=== PATIENT | female | born 1940 | race Caucasian/White ===

== ENCOUNTER → 2016-11-09 | Outpatient (CLI) | payer OTHER ==
[2016-11-09 16:00] LABS: BASOPHILS # (AUTO) 0.04 10*3/UL; BASOPHILS % (AUTO) 0.5 % (0-1); EOSINOPHILS % (AUTO) 2.6 % (0-8); HEMATOCRIT 40.3 % (37.0-47.0); HEMOGLOBIN 12.9 g/dL (12.0-16.0); LYMPHOCYTES # (AUTO) 1.83 10*3/uL; MEAN CORPUSCULAR HEMOGLOBIN 29.4 PG (27-31); MEAN CORPUSCULAR VOLUME 91.8 FL (81-99); MEAN PLATELET VOLUME 9.4 FL (7.4-12.2); MONOCYTES # (AUTO) 0.86 10*3/UL (0.3-0.8); NEUTROPHILS # (AUTO) 4.88 10*3/UL; NEUTROPHILS % (AUTO) 62.2 % (50-80); RED BLOOD COUNT 4.39 10^6/uL (4.20-5.40)
[2016-11-09 16:05] LABS: PLATELET MORPHOLOGY COMMENT NORMAL MORPHOLOGY (NORM); RBC MORPHOLOGY COMMENT NORMAL MORPHOLOGY (NORM); WBC MORPHOLOGY COMMENT NORMAL MORPHOLOGY (NORM)
[2016-11-09 16:19] LABS: CLARITY,URINE CLEAR (CLEAR); COLOR,URINE YELLOW; URINE SAMPLE TYPE VOIDED SPECIMEN
[2016-11-09 16:20] LABS: BACTERIA,URINE RARE; BILIRUBIN,URINE NEGATIVE (NEG); GLUCOSE, URINE (UA) NEGATIVE (NEG); NITRATE,URINE NEGATIVE (NEG); OCCULT BLOOD,URINE NEGATIVE (NEG); PH,URINE 7.5 (5.0-8.5); PROTEIN,URINE NEGATIVE (NEG); SQUAMOUS EPITHELIAL CELL,UR MODERATE; UROBILINOGEN,URINE 0.2 mg/dL (0.2); WBC,URINE 0-2
[2016-11-09 16:21] LABS: BUN/CREATININE RATIO 21.11 (6-20); CALCIUM 9.4 mg/dL (8.7-10.7); CHOL/HDL RATIO 3.98 RATIO (0-4.0); LDL CHOLESTEROL,CALCULATED 142.8 mg/dL
== END ==
LOC: MOB LAB 15:17
DX: I10 Essential (primary) hypertension (principal); E78.5 Hyperlipidemia, unspecified; E55.9 Vitamin D deficiency, unspecified; R53.83 Other fatigue
CPT/HCPCS: 36415; 80053; 80061; 81001; 82306; 84443; 85025

== ENCOUNTER → 2017-03-11 | Outpatient (CLI) | payer OTHER | LOC: MMPC 11:11 | DX: R51 Headache (principal); R53.83 Other fatigue; E66.9 Obesity, unspecified; I10 Essential (primary) hypertension; E78.5 Hyperlipidemia, unspecified; R60.9 Edema, unspecified; N95.2 Postmenopausal atrophic vaginitis | CPT/HCPCS: 99213; G0463 ==